=== PATIENT | male | born 1995 | race Caucasian/White ===

== ENCOUNTER 2018-05-07 21:43 | Emergency (ER) | payer OTHER ==
[2018-05-08] MEDS: ONDANSETRON 4 MG ORAL DISINTEGRATING TAB (Q0162 PER 1MG) PO (01:10)
== END 2018-05-08 02:06 | disposition home or self-care (01) ==
LOC: M ED 21:43
DX: R11.10 Vomiting, unspecified (principal); R19.7 Diarrhea, unspecified; T62.91XA Toxic effect of unspecified noxious substance eaten as food, accidental (unintentional), initial encounter; F17.200 Nicotine dependence, unspecified, uncomplicated
CPT/HCPCS: Q0162

== ENCOUNTER → 2019-02-18 | Outpatient (CLI) | payer OTHER ==
[~2019-02-18] MED LIST: ZOFR4TAB14 PO
--- NOTE | 2019-02-19 07:00 | REP ---
RIGHT ELBOW, FOUR VIEWS: HISTORY: Elbow pain. There is no acute fracture or dislocation. The joint space is normal in appearance. Two calcified densities are present medial to the distal humerus. This represents ligamentous or tendon calcification. IMPRESSION: There is no acute fracture or dislocation. Electronically Signed by Ulisses Blanton MD 02/21/2019 08:25 A
== END ==
LOC: M LRY 15:38
PROVIDERS: ATTEND Nurse Practitioner Family
DX: M25.521 Pain in right elbow (principal)
CPT/HCPCS: 73080; 96372; G0463; J1885

== ENCOUNTER 2019-10-20 09:20 | Emergency (ER) | payer OTHER ==
[~2019-10-20] VITALS: Ht 188 cm; Wt 77.8 kg
[2019-10-20] MEDS ORDERED: NS 1,000 ML IV ONE (09:45)
[2019-10-20 10:20] LABS: APPEARANCE, URINE CLEAR (CLEAR); BACTERIA, URINE AUTO NEGATIVE (NEGATIVE); BILIRUBIN, URINE AUTO NEGATIVE (NEGATIVE); BLOOD, URINE BLOOD 1+ (NEGATIVE); COLOR, URINE YELLOW (YELLOW); GLUCOSE, URINE (UA) AUTO NEGATIVE (NEGATIVE); KETONE, URINE AUTO NEGATIVE (NEGATIVE); LEUKOCYTE ESTERASE, URINE AUTO NEGATIVE (NEGATIVE); MUCUS, URINE SMALL (NEGATIVE); NITRITE, URINE AUTO NEGATIVE (NEGATIVE); PROTEIN, URINE AUTO NEGATIVE (NEGATIVE); RBC, URINE AUTO 1 /HPF (0-3); SPECIFIC GRAVITY URINE AUTO 1.023 (1.002-1.035); SQUAMOUS EPITHELIAL CELL UR AU 0 /HPF (0-6); UROBILINOGEN, URINE AUTO 0.2 mg/dL (0.0-2.0); WBC, URINE AUTO 1 /HPF (0-3)
[2019-10-20 10:20] LABS: BASO # 0.1 10^3/uL (0.0-0.2); BASO % 1.1 % (0.0-1.0); EOS # 0.3 10^3/uL (0.0-0.5); EOS % 5.3 % (0.0-3.0); HEMOGLOBIN 14.7 g/dl (13.5-17.5); LYMPH # 2.4 10^3/uL (1.5-5.0); LYMPH % 42.6 % (24.0-44.0); MEAN CORPUSCULAR HEMOGLOBIN 28.7 pg (27.0-33.0); MEAN CORPUSCULAR VOLUME 89.7 fl (80.0-96.0); MONO # 0.6 10^3/uL (0.0-0.8); MONO % 10.4 % (0.0-5.0); NEUTROPHILS # 2.3 10^3/uL (1.5-8.5); NEUTROPHILS % 40.4 % (36.0-66.0); PLATELET COUNT, AUTOMATED 378 10^3/uL (150-450); RED BLOOD COUNT 5.13 10^6/uL (4.30-6.10); WHITE BLOOD COUNT 5.7 10^3/uL (4.0-10.0)
[2019-10-20 10:46] LABS: ALT/SGPT 17 U/L (12-78); BILIRUBIN,DIRECT 0.2 MG/DL (0.0-0.2); BILIRUBIN,TOTAL 0.6 MG/DL (0.2-1.0); BLOOD UREA NITROGEN 13 MG/DL (7-18); CALCIUM LEVEL 8.8 MG/DL (8.5-10.1); CARBON DIOXIDE LEVEL 29 MEQ/L (21-32); CHLORIDE LEVEL 107 MEQ/L (98-107); CREATININE FOR GFR 0.94 MG/DL (0.70-1.30); GLOMERULAR FILTRATION RATE > 60.0 (>60); GLUCOSE, FASTING 76 MG/DL (70-100); POTASSIUM SERUM 4.5 MEQ/L (3.5-5.1); SODIUM LEVEL 142 MEQ/L (136-145); TOTAL PROTEIN 6.8 GM/DL (6.4-8.2)
[2019-10-20] MEDS ORDERED: ISOVUE-370 76% 100ML VIAL (Q9967) As Ordered ONE (10:48)
--- NOTE | 2019-10-20 11:29 | REP ---
CT ABDOMEN AND PELVIS WITH IV CONTRAST: TECHNIQUE: Axial contrast enhanced images from the lung bases to the pubic symphysis using 100 mL Isovue 370 intravenous contrast material with multiplanar reformations. Visualized lung bases are clear. The liver, spleen, adrenals, pancreas and kidneys are unremarkable in appearance. There is no hydronephrosis bilaterally. There is no abdominal aortic aneurysm. No adenopathy is seen. There is no free air. Gallbladder is collapsed. No gross biliary dilatation is seen. There is no bowel wall thickening. The appendix is normal. Urinary bladder appears unremarkable. No intraluminal abnormality is seen. There is a tiny amount of free fluid in the posterior pelvis. This is nonspecific. IMPRESSION: No evidence of appendicitis or other bowel abnormality. No free air. Tiny amount of free fluid in the pelvis is nonspecific. No hydronephrosis. Electronically Signed by Aidan Barrios MD 10/20/2019 07:09 P
[2019-10-20 11:46] VITALS: BP 110/53
== END 2019-10-20 11:48 | disposition home or self-care (01) ==
LOC: M ED 09:20
DX: J06.9 Acute upper respiratory infection, unspecified (principal); K52.9 Noninfective gastroenteritis and colitis, unspecified
CPT/HCPCS: 36415; 74177; 80048; 80076; 81001; 85025; 86850; 86900; 86901; 96360; 99284; Q9967